=== PATIENT | male | born 1945 | race Caucasian/White ===

== ENCOUNTER 2017-03-14 11:33 | Outpatient (CLI) | payer MEDICARE ==
--- NOTE | 2017-03-14 13:20 | RAD ---
TWO VIEWS OF THE CHEST: HISTORY: Cough and bronchospasm for two months. COMPARISON: None. FINDINGS/IMPRESSION: FINDINGS: Two views of the chest show normal sized cardiomediastinal silhouette. There is no evidence of consol idation, mass, or pleural effusion. The bones are unremarkable. IMPRESSION: No evidence of acute cardiopulmonary disease. POS: [facility]
== END 2017-03-14 11:34 | disposition home or self-care (01) ==
LOC: NAV RAD 11:33
DX: Z12.11 Encounter for screening for malignant neoplasm of colon (principal); J98.01 Acute bronchospasm
CPT/HCPCS: 71046

== ENCOUNTER 2017-05-17 13:57 | Outpatient (CLI) | payer MEDICARE, OTHER ==
--- NOTE | 2017-05-17 14:52 | RAD ---
TWO VIEWS CHEST: Comparison: 03-14-17 History: Bronchospasm and shortness of breath. FINDINGS: Two views of the chest show normal sized cardiomediastinal silhouette. There is no evidence of consol idation, mass, or pleural effusion. Mild degenerative changes are seen in the spine. IMPRESSION: No evidence of acute cardiopulmonary disease. POS: [facility]
== END 2017-05-17 13:58 | disposition home or self-care (01) ==
LOC: NAV RAD 13:57
PROVIDERS: ATTEND Internal Medicine
DX: J98.01 Acute bronchospasm (principal)
CPT/HCPCS: 71046

== ENCOUNTER 2020-01-22 15:05 | Emergency (ER) | payer MEDICARE, OTHER ==
[~2020-01-22 15:05] MED LIST: Iopamidol 370 76% 100 ML VIAL ONE
[2020-01-22 15:45] LABS: #Basophils 0.1 thou/uL (0.0-0.2); #Eosinphils 0.5 thou/uL (0.0-0.7); #Lymphocytes 2.1 thou/uL (1.20-3.40); #Monocytes 0.6 thou/uL (0.11-0.59); #Neutrophils 5.4 thou/uL (1.40-6.50); %Eosinophils 6.2 % (0.0-10.0); %Monocytes 6.8 % (0.0-10.0); Hemoglobin 13.7 g/dL (14.0-18.0); Mean Corpuscular HGB CONC 31.6 g/dL (32.0-36.0); Mean Corpuscular Volume 91.7 fL (78.0-98.0); Platelet Count 309 thou/uL (130-400); RBC Distribution Width 13.4 % (11.5-14.5); Red Blood Cell (RBC) Count 4.73 mill/uL (4.70-6.10); White Blood Cell (WBC) Count 8.7 thou/uL (4.8-10.8)
--- NOTE | 2020-01-22 15:52 | RAD ---
PORTABLE CHEST: Date: 01/22/2020 HISTORY: Wheezing. FINDINGS: Heart size and mediastinum are within normal limits. Lungs are clear of any definite infiltrative pro cess. Calcification in the left hilar region noted. IMPRESSION: No active intrathoracic disease. POS: [facility]
[2020-01-22 16:04] LABS: ALT (SGPT) 22 U/L (8-55); AST (SGOT) 18 U/L (5-34); Alkaline Phosphatase 77 U/L (40-110); Anion Gap 16 mmol/L (10-20); BUN (Urea Nitrogen) 18 mg/dL (8.4-25.7); Bilirubin, Total 0.2 mg/dL (0.2-1.2); Calc. Creatinine Clearance 0 mL/min (70-130); Calcium 8.9 mg/dL (7.8-10.44); Carbon Dioxide 25 mmol/L (23-31); Chloride 102 mmol/L (98-107); Globulin 3.3 g/dL (2.4-3.5); Glucose 109 mg/dL (83-110); Potassium 4.3 mmol/L (3.5-5.1); Protein, Total 7.3 g/dL (5.8-8.1); Sodium 139 mmol/L (136-145)
--- NOTE | 2020-01-22 17:05 | CT ---
Exam: CT angiogram of the chest HISTORY: Dyspnea. Fatigue. Wheezing. COMPARISON: None TECHNIQUE: CT angiogram of the chest is performed in the axial plane. Three-dimensional reformatted i mages are submitted for interpretation FINDINGS: Mediastinum: No mass, lymphadenopathy or hematoma. HEART: Normal size. No significant pericardial fluid. Aorta: No aneurysm or dissection Upper solid abdominal viscera: No abnormality enhancement. Trachea and central bronchi: Patent Pleural spaces: No effusion Lung parenchyma: No masses or consolidation. Scattered scarring and atelectasis in bilateral lower lo bes. Pneumothorax: None Osseous structures: No lytic or blastic lesions Pulmonary arteries: Adequate contrast opacification pulmonary arterial system to the level of segment al arteries. No filling defect to suggest pulmonary embolism IMPRESSION: 1. No evidence of pulmonary artery embolism to the level of the segmental arteries.
[2020-01-22] MEDS ORDERED: methylPREDNISolone Sod Succ/PF 125 MG/2 ML VIAL ONE (17:08)
[2020-01-23 19:27] LABS: SARS-CoV-2 MS2 Positive; SARS-CoV-2 N Gene Negative; SARS-CoV-2 S Gene Negative; SARS-CoV-2 by NAA Not Detected (NotDetected); SARS-CoV-2 orf1ab Negative
== END 2020-01-22 17:20 | disposition home or self-care (01) ==
LOC: NAV ERS 15:05
DX: J45.901 Unspecified asthma with (acute) exacerbation (principal); J06.9 Acute upper respiratory infection, unspecified; Z20.828 Contact with and (suspected) exposure to other viral communicable diseases; I10 Essential (primary) hypertension
CPT/HCPCS: 71045; 71275; 80053; 83605; 83880; 84484; 85025; 85379; 93005; U0003; 87635; J2930; Q9967

== ENCOUNTER 2021-04-01 14:40 | Outpatient (CLI) | payer MEDICARE | END 2021-04-01 14:41 | disposition home or self-care (01) | LOC: NAV RAD 14:40 | PROVIDERS: ATTEND Nurse Practitioner Family | DX: R09.89 Other specified symptoms and signs involving the circulatory and respiratory systems (principal) | CPT/HCPCS: 71046 ==

== ENCOUNTER 2022-04-26 09:10 | Emergency (ER) | payer OTHER, MEDICARE ==
[2022-04-26 09:30] LABS: #Basophils 0.1 thou/uL (0.0-0.2); #Eosinphils 0.3 thou/uL (0.0-0.7); #Lymphocytes 2.1 thou/uL (1.20-3.40); #Monocytes 0.9 thou/uL (0.11-0.59); #Neutrophils 8.6 thou/uL (1.40-6.50); %Basophils 0.9 % (0.0-1.0); %Eosinophils 2.1 % (0.0-10.0); %Lymphocytes 17.3 % (21.0-51.0); %Monocytes 7.6 % (0.0-10.0); %Neutrophils 72.2 % (42.0-75.0); Hemoglobin 9.3 g/dL (14.0-18.0); Mean Corpuscular HGB CONC 31.8 g/dL (32.0-36.0); Mean Corpuscular Hemoglobin 27.5 pg (27.0-31.0); Mean Corpuscular Volume 86.4 fl (78.0-98.0); Platelet Count 429 10x3/uL (130-400); RBC Distribution Width 15.1 % (11.5-14.5); White Blood Cell (WBC) Count 11.9 10x3/uL (4.8-10.8)
[2022-04-26 09:38] LABS: Prothrombin Time 13.4 sec (12.0-14.7)
[2022-04-26 09:57] LABS: ALT (SGPT) 22 U/L (8-55); AST (SGOT) 16 U/L (5-34); Albumin 4.1 g/dL (3.4-4.8); Alkaline Phosphatase 65 U/L (40-110); Anion Gap 18 mmol/L (10-20); BUN (Urea Nitrogen) 46 mg/dL (8.4-25.7); Bilirubin, Total 0.3 mg/dL (0.2-1.2); CK (CPK) 199 U/L (30-200); Calc. Creatinine Clearance 0 mL/min (70-130); Calcium 9.3 mg/dL (7.8-10.44); Carbon Dioxide 25 mmol/L (23-31); Chloride 98 mmol/L (98-107); Estimated GFR 26; Globulin 3.7 g/dL (2.4-3.5); Glucose 121 mg/dL (83-110); Potassium 4.8 mmol/L (3.5-5.1); Protein, Total 7.8 g/dL (5.8-8.1); Sodium 136 mmol/L (136-145)
[2022-04-26] MEDS ORDERED: Sodium Chloride 0.9% 1,000 ML ONE (10:19)
== END 2022-04-26 18:09 | disposition short-term general hospital (02) ==
LOC: NAV ERS 09:10
DX: R07.89 Other chest pain (principal); G45.9 Transient cerebral ischemic attack, unspecified; R55 Syncope and collapse; R29.700 NIHSS score 0; R29.702 NIHSS score 2; I10 Essential (primary) hypertension; Z79.82 Long term (current) use of aspirin; Z79.899 Other long term (current) drug therapy
CPT/HCPCS: 36415; 36416; 70450; 70496; 70498; 71045; 80053; 82274; 82550; 84484; 85025; 85610; 85730; 93005; 96360; J7050; Q9967

== ENCOUNTER 2023-04-19 10:44 | Emergency (ER) | payer MEDICARE | END 2023-04-19 11:35 | disposition home or self-care (01) | LOC: NAV ERS 10:44 | DX: R42 Dizziness and giddiness (principal); E78.00 Pure hypercholesterolemia, unspecified; I10 Essential (primary) hypertension; Z79.82 Long term (current) use of aspirin; Z79.899 Other long term (current) drug therapy | CPT/HCPCS: 99283 ==